=== PATIENT | female | born 1995 | race Hispanic/Latino ===

== ENCOUNTER 2024-05-10 09:15 | Outpatient (CLI) | payer OTHER | END 2024-05-10 09:16 | disposition home or self-care (01) | LOC: CSHLAB 09:15 | PROVIDERS: ATTEND Obstetrics & Gynecology | DX: Z01.812 Encounter for preprocedural laboratory examination (principal); O36.60X0 Maternal care for excessive fetal growth, unspecified trimester, not applicable or unspecified; Z3A.00 Weeks of gestation of pregnancy not specified | CPT/HCPCS: 85027; 86780; 86850; 86900; 86901; 87340 ==

== ENCOUNTER 2024-05-11 05:23 | Inpatient (IN) | payer OTHER ==
[2024-05-10 10:41] LABS: Hemoglobin 12.6 g/dL (12.0-15.5); Mean Corpuscular Hemoglobin 32.3 pg (27.0-33.0); Mean Corpuscular Volume 89.7 fL (81.6-98.3); Mean Platelet Volume 10.1 fL (7.4-10.4); Platelet Count 149 10x3/uL (150-450); RBC Distribution Width 13.6 % (11.5-14.5); White Blood Cell (WBC) Count 8.4 10x3/uL (3.5-10.5)
[2024-05-10 11:21] LABS: Syphilis Antibody Nonreactive (Nonreactive); Syphilis Antibody Index 0.03 S/CO (<1.00 Non-Reactive)
[2024-05-10 13:02] LABS: HBsAg Index 0.15 S/CO (0-0.99); Hep B Surf Ag Non-Reactive S/CO (NonReactive)
[2024-05-11 06:14] VITALS: BMI 29.9
[2024-05-11] MEDS ORDERED: Promethazine HCl 25 MG/ML VIAL IM PRN ×2 (06:15→07:16)
[2024-05-11] MEDS ORDERED: Bicitra 30 ML UDCUP PO PRN (06:15)
[2024-05-11] MEDS ORDERED: hydrALAZINE 20 MG/ML VIAL SLOW IVP PRN ×2 (06:15→15:10)
[2024-05-11] MEDS ORDERED: Ondansetron PF 4 MG/2 ML Vial IVP PRN ×4 (06:15→15:10)
[2024-05-11] MEDS ORDERED: Moisturizing Cream (Eucerin) 113 GM JAR TOP PRN (07:16)
[2024-05-11] MEDS ORDERED: diphenhydrAMINE 50 MG/ML VIAL IVP PRN (07:16)
[2024-05-11] MEDS ORDERED: Naloxone HCl 0.4 mg/ml Vial IV PRN (07:16)
[2024-05-11] MEDS ORDERED: fentaNYL 50 mcg/mL 1 mL Vial SLOW IVP PRN (07:16)
[2024-05-11] MEDS ORDERED: Meperidine HCl/PF 25 MG (1 mL) VIAL SLOW IVP PRN (07:16)
[2024-05-11] MEDS ORDERED: HYDROmorphone 0.5 MG/0.5 ML SYRINGE SLOW IVP PRN (07:16)
[2024-05-11] MEDS ORDERED: Naloxone HCl 0.4 mg/ml Vial IVP PRN ×2 (07:16)
[2024-05-11] MEDS: Famotidine/PF 20 mg/2ml Vial SLOW IVP PRN (07:17)
[2024-05-11] MEDS: CEFAZOLIN 2 GM in Sodium Chloride 0.9% 100 ML IVPB SCH (07:17)
[2024-05-11] MEDS: Lactated Ringer's 1,000 ML IV SCH (07:18)
[2024-05-11] MEDS ORDERED: Communication Order-Pharmacy FS SCH (07:30)
[2024-05-11] MEDS: Oxytocin 30 units/NS 500 ML 500 ML IV SCH (11:04)
[2024-05-11] MEDS: Tranexamic Acid 1,000 MG/10 ML VIAL IVP SCH (12:04)
[2024-05-11] MEDS ORDERED: Ketorolac Tromethamine 30 MG (1 mL) VIAL IVP PRN (14:00)
[2024-05-11] MEDS ORDERED: diphenhydrAMINE 25 MG CAP PO PRN (15:10)
[2024-05-11] MEDS ORDERED: Bisacodyl 10 MG SUPP PR PRN (15:10)
[2024-05-11] MEDS ORDERED: Lanolin Ointment 7 GM TUBE TOP PRN (15:10)
[2024-05-11] MEDS: Docusate 100 MG CAP PO SCH ×2 (16:35→21:54)
[2024-05-11] MEDS: Ibuprofen 800 MG TAB PO SCH (16:55)
[2024-05-11] MEDS: Prenatal Vitamin 1 TAB PO SCH (16:57)
[2024-05-11] MEDS: Ferrous Sulfate 325 MG TAB PO SCH ×2 (16:57→21:00)
[2024-05-11] MEDS: Dexamethasone 4 mg/ml Vial ONE (19:31)
[2024-05-11] MEDS: Ketorolac Tromethamine 30 MG (1 mL) VIAL ONE (19:33)
[2024-05-11] MEDS: Metoclopramide HCl 10 MG (2 mL) VIAL ONE (19:33)
[2024-05-11] MEDS: CEFAZOLIN 2 GM VIAL ONE (19:34)
[2024-05-11] MEDS: Phenylephrine 40 MG/NS 250 ML 250 ML ONE (19:34)
[2024-05-11] MEDS: Oxytocin 10 UNITS/ML VIAL ONE ×2 (19:34→19:35)
[2024-05-11] MEDS: Morphine PF 10 MG/10 ML VIAL ONE (19:34)
[2024-05-11] MEDS: Ondansetron PF 4 MG/2 ML Vial ONE (19:34)
[2024-05-11] MEDS: Famotidine/PF 20 mg/2ml Vial ONE (19:35)
[2024-05-11] MEDS: Misoprostol 200 MCG TAB ONE (19:35)
[2024-05-11] MEDS: Tranexamic Acid 1,000 MG/10 ML VIAL ONE (19:35)
[2024-05-11] MEDS: HYDROcodone/Acetaminophen 5/325 mg Tablet PO PRN (21:54)
[2024-05-12] MEDS: Ibuprofen 800 MG TAB PO SCH (00:26)
[2024-05-12 03:25] LABS: Hematocrit 19.7 % (34.9-44.5); Mean Corpuscular HGB CONC 35.5 g/dL (32.0-36.0); Mean Corpuscular Hemoglobin 32.6 pg (27.0-33.0); Mean Corpuscular Volume 91.6 fL (81.6-98.3); Mean Platelet Volume 10.2 fL (7.4-10.4); Platelet Count 131 10x3/uL (150-450); RBC Distribution Width 13.5 % (11.5-14.5); Red Blood Cell (RBC) Count 2.15 10x6/uL (3.90-5.03); White Blood Cell (WBC) Count 11.6 10x3/uL (3.5-10.5)
[2024-05-12] MEDS: Boostrix 0.5 ML (Tdap) VIAL (>/=7 yrs of age) IM ONE (07:17)
[2024-05-12] MEDS: Misoprostol 200 MCG TAB SL SCH (09:04)
[2024-05-12] MEDS: HYDROcodone/Acetaminophen 5/325 mg Tablet PO PRN (09:04)
[2024-05-12] MEDS: Sodium Chloride 0.9% 1,000 ML IV SCH (09:05)
[2024-05-12] MEDS: Methylergonovine 0.2 MG/ML VIAL IM SCH (09:05)
[2024-05-12 09:16] LABS: Hematocrit 21.1 % (34.9-44.5); Hemoglobin 7.5 g/dL (12.0-15.5); Mean Corpuscular HGB CONC 35.5 g/dL (32.0-36.0); Mean Corpuscular Hemoglobin 32.6 pg (27.0-33.0); Mean Corpuscular Volume 91.7 fL (81.6-98.3); Platelet Count 115 10x3/uL (150-450); RBC Distribution Width 13.5 % (11.5-14.5); White Blood Cell (WBC) Count 9.6 10x3/uL (3.5-10.5)
[2024-05-12] MEDS: Prenatal Vitamin 1 TAB PO SCH (10:09)
[2024-05-12] MEDS: Tranexamic Acid 650 MG TAB PO SCH (11:53)
[2024-05-12 15:47] LABS: Hematocrit 25.5 % (34.9-44.5); Hemoglobin 9.3 g/dL (12.0-15.5); Mean Corpuscular HGB CONC 36.5 g/dL (32.0-36.0); Mean Corpuscular Hemoglobin 32.9 pg (27.0-33.0); Mean Corpuscular Volume 90.1 fL (81.6-98.3); Platelet Count 139 10x3/uL (150-450); RBC Distribution Width 14.5 % (11.5-14.5); Red Blood Cell (RBC) Count 2.83 10x6/uL (3.90-5.03); White Blood Cell (WBC) Count 11.1 10x3/uL (3.5-10.5)
[2024-05-12] MEDS: Simethicone Chewable 80 MG TAB PO PRN (17:55)
[2024-05-13 07:50] VITALS: BP 109/62; TEMP 98.6
== END 2024-05-13 13:15 | disposition home or self-care (01) | DRG 787 ==
LOC: CSHLD 05:23 → CSHPED 13:55
PROVIDERS: ADMIT Obstetrics & Gynecology; ATTEND Obstetrics & Gynecology
PROC: 10D00Z1 Extraction of Products of Conception, Low, Open Approach (ICD-10-PCS; principal; 2024-05-11)
PROC: 30233N1 Transfusion of Nonautologous Red Blood Cells into Peripheral Vein, Percutaneous Approach (ICD-10-PCS; 2024-05-12)
DX: O36.63X0 Maternal care for excessive fetal growth, third trimester, not applicable or unspecified (principal); D62 Acute posthemorrhagic anemia; Z3A.39 39 weeks gestation of pregnancy; Z37.0 Single live birth; O90.81 Anemia of the puerperium
CPT/HCPCS: 36415; 36430; 51702; 85027; 86780; 86850; 86900; 86901; 87340; J1100; J1885; J2210; J2274; J2405; J2590; J2765; J3490; J7050; J7120; P9016; S0028